=== PATIENT | female | born 1960 | race Caucasian/White ===

== ENCOUNTER 2018-08-15 06:33 | Day surgery (SDC) | payer OTHER ==
[2018-08-06 13:13] VITALS: BMI 36.6
[2018-08-15] MEDS ORDERED: BUPIVACAINE HCL 0.25% 125 MG/50 ML VIAL ONE (07:06)
[2018-08-15] MEDS ORDERED: LIDOCAINE HCL 2% (20ML MULTI-DOSE VIAL) NR ONE (07:06)
[2018-08-15] MEDS ORDERED: PROPOFOL 20 ML ONE ×2 (07:06→07:12)
[2018-08-15] MEDS ORDERED: DEXAMETHASONE SOD PHOSPHATE 4 MG/1 ML VIAL ONE (07:07)
[2018-08-15] MEDS ORDERED: KETOROLAC TROMETHAMINE 30 MG/1 ML VIAL ONE (07:07)
[2018-08-15] MEDS ORDERED: SUCCINYLCHOLINE CHLORIDE 200 MG/10 ML VIAL ONE (07:07)
[2018-08-15] MEDS ORDERED: MIDAZOLAM HCL 2 MG/2 ML SINGLE DOSE VIAL ONE (07:07)
[2018-08-15] MEDS ORDERED: ONDANSETRON 4 MG/2 ML VIAL ONE (07:07)
[2018-08-15] MEDS ORDERED: LIDOCAINE HCL 2% (50ML VIAL) INF ONE (08:00)
[2018-08-15 08:59] VITALS: TEMP 97.3
[2018-08-15 09:24] VITALS: BP 113/61; PULSE 75
--- NOTE | 2018-08-17 09:19 | OP ---
DATE OF OPERATION: 08/15/2018 PREOPERATIVE DIAGNOSIS: Right carpal tunnel syndrome. POSTOPERATIVE DIAGNOSIS: Right carpal tunnel syndrome. OPERATIVE PROCEDURE: Right carpal tunnel release. ANESTHESIA: Local with sedation. COMPLICATIONS: None. ESTIMATED BLOOD LOSS: Minimal. INDICATION FOR PROCEDURE: The patient is a 58-year-old female with the above finding, indicated for operative treatment. Risks, benefits, alternatives were discussed with her at length and proper informed consent was obtained. PROCEDURE IN DETAIL: After proper identification of the patient and correct operative site patient brought to the operating room and placed supine on the operating table. Prominences well padded. Sedation and local anesthesia were given. Right upper extremity was prepped and draped in the usual sterile fashion. Well-padded tourniquet was placed with a sterile prep. Esmarch bandage to exsanguinate the right upper extremity. Tourniquet was inflated to 250 mmHg. Longitudinal incision made in the proximal aspect of the palm. Incision taken sharply through the skin with blunt and sharp dissection through the subcutaneous tissues. Palmar fascia divided longitudinally. Transcarpal ligament along with the distal 4 cm of the antebrachial fascia was divided under direct visualization with loupe magnification. This provided complete release of the median nerve at the wrist. Wound was repaired with a 5-0 fast-absorbing plain gut suture. Sterile dressings were applied. The patient was brought to the recovery room in stable condition. Stella [id number]
== END 2018-08-15 09:35 | disposition home or self-care (01) ==
LOC: FASU 06:33
PROVIDERS: ATTEND Orthopaedic Surgery Hand Surgery
PROC: 01N50ZZ Release Median Nerve, Open Approach (ICD-10-PCS; principal; 2018-08-15 08:00)
DX: G56.01 Carpal tunnel syndrome, right upper limb (principal)

== ENCOUNTER 2018-10-24 06:19 | Day surgery (SDC) | payer OTHER ==
[2018-10-08 16:26] VITALS: BMI 36.6
[2018-10-24] MEDS ORDERED: LIDOCAINE HCL 2% (20ML MULTI-DOSE VIAL) NR ONE (07:03)
[2018-10-24] MEDS ORDERED: ROCURONIUM BROMIDE 50 MG/5 ML SYRINGE ONE (07:25)
[2018-10-24] MEDS ORDERED: SUCCINYLCHOLINE CHLORIDE 200 MG/10 ML SYRINGE ONE (07:25)
[2018-10-24] MEDS ORDERED: PROPOFOL 20 ML ONE ×2 (07:25→15:20)
[2018-10-24] MEDS ORDERED: MIDAZOLAM HCL 2 MG/2 ML SINGLE DOSE VIAL ONE (07:25)
[2018-10-24] MEDS ORDERED: LIDOCAINE HCL 2% (50ML VIAL) INF ONE (07:54)
[2018-10-24 08:35] VITALS: TEMP 97.8
[2018-10-24] MEDS ORDERED: ONDANSETRON 4 MG/2 ML VIAL IVPUSH PRN (08:39)
[2018-10-24] MEDS ORDERED: ACETAMINOPHEN 325 MG TABLET (FP) PO PRN (08:39)
[2018-10-24 10:42] VITALS: BP 135/75; PULSE 80
--- NOTE | 2018-10-25 13:19 | HP ---
DATE OF ADMISSION: 10/24/2018 PREOPERATIVE DIAGNOSES: 1. Left carpal tunnel syndrome. 2. Left trigger thumb. POSTOPERATIVE DIAGNOSES: 1. Left carpal tunnel syndrome. 2. Left trigger thumb. OPERATIVE PROCEDURE: 1. Left carpal tunnel release. 2. Left trigger thumb release. SURGEON: Osbaldo Kelly MD ANESTHESIA: Local with sedation. COMPLICATIONS: None. ESTIMATED BLOOD LOSS: Minimal. INDICATIONS FOR PROCEDURE: The patient is a 58-year-old female with the above findings indicated for operative treatment. Risks, benefits, alternatives were discussed with the patient at length. Proper informed consent was obtained. DESCRIPTION OF PROCEDURE: After proper identification of patient and correct operative site, patient was brought to the operating room and placed supine on the operative table, prominences well padded. Sedation and local anesthesia were given. Left upper extremity was prepped and draped in usual sterile fashion. A well-padded tourniquet was placed with a sterile prep. Esmarch bandage to exsanguinate left upper extremity. Tourniquet was inflated to 250 mmHg. Longitudinal incision was made over the proximal aspect of the palm. Incision was taken sharply through the skin with sharp and blunt dissection in the subcutaneous tissues. Palmar fascia was divided longitudinally. Transverse carpal ligament was divided longitudinally along with the distal 4 cm of the antebrachial fascia under direct visualization with loupe magnification. This provided complete release of the median nerve at the wrist. Wound was repaired with a 5-0 fast-absorbing plain gut suture. Second incision was made transvaginal over the thumb A1 junior. Incision was taken sharply through the skin with blunt dissection through the subcutaneous tissues. A1 junior was identified, and neurovascular structures were carefully protected. The A1 junior was divided, and the patient was asked to flex and extend the thumb, and no further triggering was noted. The wound was repaired with 5-0 fast-absorbing plain gut, and sterile dressings were applied. Patient was reversed from anesthesia and brought to recovery room in stable condition. She tolerated the procedure well. OSBALDO KELLY M.D. [id number]
== END 2018-10-24 09:04 | disposition home or self-care (01) ==
LOC: FASU 06:19
PROVIDERS: ATTEND Orthopaedic Surgery Hand Surgery
PROC: 01N50ZZ Release Median Nerve, Open Approach (ICD-10-PCS; principal; 2018-10-24 07:30)
PROC: 0LN80ZZ Release Left Hand Tendon, Open Approach (ICD-10-PCS; 2018-10-24 07:30)
DX: G56.02 Carpal tunnel syndrome, left upper limb (principal); M65.312 Trigger thumb, left thumb